=== PATIENT | male | born 1995 | race Caucasian/White ===

== ENCOUNTER 2024-04-26 14:23 | Emergency (ER) | payer BC ==
[~2024-04-26] VITALS: Ht 177.8 cm; Wt 102.1 kg
[~2024-04-26 14:23] MED LIST: ALBU0.0939
[2024-04-26 14:55] VITALS: BP 174/127; PULSE 103; RESP 18; TEMP 97; O2SAT 98
[2024-04-26 15:00] VITALS: O2SAT 98
[2024-04-26 15:24] LABS: BASOPHILS % (AUTO) 0.4 % (0.0-2.0); EOSINOPHILS % (AUTO) 0.1 % (0.0-4.0); HEMOGLOBIN 15.2 g/dL (12.0-18.0); LYMPHOCYTES # (AUTO) 1.3 K/uL (2.0-11.5); LYMPHOCYTES % (AUTO) 12.2 % (20.5-51.1); MEAN CORPUSCULAR HEMOGLOBIN 32 pg (27-31); MEAN CORPUSCULAR HGB CONC 34 g/dL (33-37); MONOCYTES # (AUTO) 0.8 K/uL (0.8-1.0); MONOCYTES % (AUTO) 8.1 % (1.7-9.3); NEUTROPHILS # (AUTO) 8.1 K/uL (1.8-7.7); NEUTROPHILS % (AUTO) 79.2 % (42.2-75.2); PLATELET COUNT (AUTO) 273 K/uL (140-450); RED BLOOD CELL COUNT(AUTO) 4.78 MIL/uL (4.20-6.10); RED CELL DISTRIBUTION WIDTH 14.2 % (11.6-13.7); WHITE BLOOD COUNT (AUTO) 10.2 K/uL (4.8-10.8)
[2024-04-26 15:33] LABS: ANION GAP 13.1 (8-16); CALCIUM 10.2 mg/dL (8.5-10.1); CARBON DIOXIDE 28.9 mmol/L (21-32); CREATININE 0.8 mg/dL (0.6-1.3)
== END 2024-04-26 18:37 | disposition home or self-care (01) ==
LOC: MED 14:23
DX: I10 Essential (primary) hypertension (principal); R07.9 Chest pain, unspecified; R00.0 Tachycardia, unspecified; J45.909 Unspecified asthma, uncomplicated; Z79.899 Other long term (current) drug therapy
CPT/HCPCS: 36415; 71045; 80048; 84484; 85025; 85379; 93005; 99285